=== PATIENT | male | born 1965 | race African-American/Black ===

== ENCOUNTER 2018-10-04 16:24 | Emergency (ER) | payer OTHER ==
[~2018-10-04] VITALS: Ht 180.3 cm; Wt 88.5 kg
[~2018-10-04 16:24] MED LIST: COLACE 100 MG100 MG PO; FLEXERIL PO; NAPROSYN500 MG PO; NOHOMEMEDICATIONS; NORCO 5-325 TA1 EACH PO; NORFLEX100 MG PO; PROCTOFOAM-HC F10 GM RC; ULTRAM 50MG TAB50 MG PO
[2018-10-04] MEDS ORDERED: ULTRAM 50MG TAB50 MG PO (16:47)
[2018-10-04 17:00] VITALS: BP 132/87
== END 2018-10-04 17:00 | disposition home or self-care (01) ==
LOC: ER 16:24
DX: D17.1 Benign lipomatous neoplasm of skin and subcutaneous tissue of trunk (principal)

== ENCOUNTER 2019-09-26 19:32 | Emergency (ER) | payer OTHER ==
[~2019-09-26] VITALS: Ht 180.3 cm; Wt 72.6 kg
[2019-09-26] MEDS ORDERED: ZANAFLEX4 MG PO (21:05)
[2019-09-26 21:30] VITALS: BP 151/88
== END 2019-09-26 21:30 | disposition home or self-care (01) ==
LOC: ER 19:32
DX: S16.1XXA Strain of muscle, fascia and tendon at neck level, initial encounter (principal); M54.5 Low back pain; F17.210 Nicotine dependence, cigarettes, uncomplicated; V43.52XA Car driver injured in collision with other type car in traffic accident, initial encounter; Y92.89 Other specified places as the place of occurrence of the external cause; Y93.89 Activity, other specified; Y99.8 Other external cause status

== ENCOUNTER 2020-11-07 09:08 | Emergency (ER) | payer OTHER ==
[~2020-11-07] VITALS: Ht 180.3 cm; Wt 72.6 kg
[~2020-11-07 09:08] MED LIST changes: +ZANAFLEX4 MG PO
[2020-11-07 09:29] LABS: URINE BILIRUBIN NEGATIVE (Negative); URINE BLOOD NEGATIVE (Negative); URINE CLARITY CLEAR; URINE COLOR YELLOW; URINE GLUCOSE-RANDOM* NEGATIVE (Negative); URINE KETONES NEGATIVE (Negative); URINE LEUKOCYTES-REFLEX NEGATIVE (Negative); URINE NITRITE-REFLEX NEGATIVE (Negative); URINE PROTEIN (DIPSTICK) NEGATIVE (Negative); URINE SPECIFIC GRAVITY 1.025 (1.005-1.035); URINE UROBILINOGEN 0.2 E.U./dl (0.2-1.0)
[2020-11-07 09:37] LABS: BASOPHILS 1.1 % (0.0-2.0); EOSINOPHILS 1.2 % (0.0-3.0); HEMATOCRIT 47.9 % (42.0-52.0); HEMOGLOBIN 15.9 gm/dL (14.0-18.0); LYMPHOCYTES 17.6 % (24.0-44.0); MCH 32.7 pg (26.0-34.0); MCHC 33.1 g/dL (28.0-37.0); MCV 98.9 fL (80.0-100.0); POLYS 74.1 % (36.0-66.0); RBC 4.85 mil/uL (4.50-6.00); RDW 14.6 % (10.5-14.5); WBC 9.4 thou/uL (4.0-11.0)
[2020-11-07 10:03] LABS: CALCIUM 9.2 mg/dL (8.5-10.1); CREATININE 1.1 mg/dL (0.7-1.3); POTASSIUM 3.8 mmol/L (3.5-5.1)
[2020-11-07 10:09] LABS: ALBUMIN 4.2 g/dL (3.4-5.0); TOTAL BILIRUBIN 0.7 mg/dL (0.2-1.0); TOTAL PROTEIN 7.9 g/dL (6.4-8.2)
[2020-11-07 10:45] LABS: LARGE PLATELETS FEW; PLATELET COUNT 179 thou/uL (150-400)
[2020-11-07 12:37] VITALS: BP 130/83
== END 2020-11-07 12:38 | disposition home or self-care (01) ==
LOC: ER 09:08
PROVIDERS: Emergency Medicine
DX: R10.31 Right lower quadrant pain (principal); R10.32 Left lower quadrant pain; F17.210 Nicotine dependence, cigarettes, uncomplicated

== ENCOUNTER 2021-01-25 08:31 | Emergency (ER) | payer OTHER ==
[~2021-01-25] VITALS: Ht 180.3 cm; Wt 72.6 kg
[2021-01-25] MEDS ORDERED: MOBIC15 MG PO (09:12)
[2021-01-25] MEDS ORDERED: METHOCARBAMOL500 M2 PO (09:12)
[2021-01-25 09:28] VITALS: BP 110/75
== END 2021-01-25 09:38 | disposition home or self-care (01) ==
LOC: ER 08:31
DX: M47.816 Spondylosis without myelopathy or radiculopathy, lumbar region (principal); R20.2 Paresthesia of skin; F17.210 Nicotine dependence, cigarettes, uncomplicated

== ENCOUNTER 2021-05-25 09:09 | Emergency (ER) | payer OTHER ==
[~2021-05-25] VITALS: Ht 180.3 cm; Wt 72.6 kg
[~2021-05-25 09:09] MED LIST changes: +METHOCARBAMOL500 M2 PO; +MOBIC15 MG PO
[2021-05-25 09:35] VITALS: BP 118/77
== END 2021-05-25 10:13 | disposition home or self-care (01) ==
LOC: ER 09:09
PROVIDERS: Emergency Medicine
DX: D17.9 Benign lipomatous neoplasm, unspecified (principal); Z20.822 Contact with and (suspected) exposure to COVID-19; F17.210 Nicotine dependence, cigarettes, uncomplicated

== ENCOUNTER 2021-06-05 20:26 | Emergency (ER) | payer OTHER ==
[~2021-06-05] VITALS: Ht 180.3 cm; Wt 65.3 kg
[2021-06-05 21:09] LABS: ABSOLUTE NEUTROPHILS 9.1 thou/uL (1.4-8.2); BASOPHILS 0.9 % (0.0-2.0); EOSINOPHILS 1.2 % (0.0-3.0); HEMATOCRIT 47.1 % (42.0-52.0); HEMOGLOBIN 15.4 gm/dL (14.0-18.0); MCH 33.2 pg (26.0-34.0); MCHC 32.8 g/dL (28.0-37.0); MCV 101.3 fL (80.0-100.0); MONOCYTES 6.5 % (1.0-8.0); PLATELET COUNT 163 thou/uL (150-400); POLYS 72.4 % (36.0-66.0); RBC 4.65 mil/uL (4.50-6.00); RDW 14.4 % (10.5-14.5); WBC 12.5 thou/uL (4.0-11.0)
[2021-06-05 21:17] LABS: CALCIUM 8.9 mg/dL (8.5-10.1); CREATININE 0.9 mg/dL (0.7-1.3); POTASSIUM 3.7 mmol/L (3.5-5.1)
[2021-06-05] MEDS ORDERED: NORCO5 PO ×2 (22:47→22:51)
== END 2021-06-05 23:04 | disposition home or self-care (01) ==
LOC: ER 20:26
PROVIDERS: Physician Assistant
DX: K91.871 Postprocedural hematoma of a digestive system organ or structure following other procedure (principal); Y83.8 Other surgical procedures as the cause of abnormal reaction of the patient, or of later complication, without mention of misadventure at the time of the procedure; Y92.89 Other specified places as the place of occurrence of the external cause; F17.210 Nicotine dependence, cigarettes, uncomplicated